=== PATIENT | female | born 1965 | race Caucasian/White ===

== ENCOUNTER 2017-01-30 07:49 | Day surgery (SDC) | payer MEDICAID ==
[~2017-01-30] VITALS: Ht 139.7 cm; Wt 81.0 kg
[2017-01-30] VITALS (11 sets, daily range): BP systolic 126–151; BP diastolic 74–108; PULSE 85–110
[~2017-01-30 07:49] MED LIST: 00186-0370-20 IH; CELEXA40 MG PO; CEPHALEXIN500 M1 PO; COREG 3.123.125 MG/T PO; FERROUS SU325 MG/TAB PO; GLUCOPHAGE500 MG/TAB PO; GLUCOTROL10 MG PO; HCTZ 25MG TAB25 MG PO; LASIX 20MG TABL20 MG PO; LOPRESSOR 225 MG/TAB PO; NAPROSYN500 MG PO; NORCO 325 MG-51 TAB PO; NOVOLIN 70/30 710 ML SQ; PREDNISONE20 MG PO; PROAIR HFA0.09 MG/AC IH; PROZAC 20MG20 MG PO; RT ALBUTER2.5 MG/0.5 IH; TOPROL XL 50MG50 MG PO; VASOTEC 5MG5 MG/TAB PO; ZESTRIL 10MG10 MG PO
[2017-01-30] MEDS ORDERED: HUMULIN 70/30 PE3 ML SQ (09:01)
[2017-01-30] MEDS ORDERED: GLUCOPHAGE500 MG/TAB PO (09:02)
[2017-01-30] MEDS ORDERED: LASIX 40MG TABL40 MG PO (09:03)
[2017-01-30] MEDS ORDERED: TIAZAC120 MG PO (09:04)
[2017-01-30] MEDS ORDERED: TOPROL XL 50MG50 MG PO (09:05)
[2017-01-30] MEDS ORDERED: COREG 6.256.25 MG/TA PO (09:05)
[2017-01-30 09:07] LABS: MEAN CELL VOLUME 75 fl (80.0-100.0); MEAN CORPUSCULAR HGB CONC 32 g/dl (33.0-37.0); MEAN PLATELET VOLUME 11.1 fl (7.4-10.4); PLATELET COUNT 259 K/mm3 (130-400); RED BLOOD COUNT 4.83 M/mm3 (4.10-5.30); REDCELL DISTRIBUTION WIDTH-CV 15.9 % (11.5-14.5); WHITE BLOOD COUNT 4.6 K/mm3 (4.8-10.8)
[2017-01-30 09:11] LABS: INR 1.1 (0.8-3.0); PROTHROMBIN TIME 11.9 SECONDS (9.7-12.8)
[2017-01-30 09:20] LABS: HEMATOCRIT 36.4 % (37.0-47.0); HEMOGLOBIN 11.6 g/dl (12.5-16.0); MEAN CORPUSCULAR HEMOGLOBIN 24 pg (27.0-31.0)
[2017-01-30 09:21] LABS: CALCIUM 8.9 mg/dL (8.4-10.2); CREATININE, serum 0.65 mg/dL (0.52-1.25); POTASSIUM 3.7 mmol/L (3.4-5.0)
[2017-01-30] MEDS ORDERED: CEPHALEXIN250 M1 PO (14:41)
== END 2017-01-30 15:01 | disposition home or self-care (01) ==
LOC: COL.CAR 07:49
PROVIDERS: Internal Medicine Interventional Cardiology
DX: T82.847A Pain due to cardiac prosthetic devices, implants and grafts, initial encounter (principal); I25.9 Chronic ischemic heart disease, unspecified; I50.22 Chronic systolic (congestive) heart failure; Z79.84 Long term (current) use of oral hypoglycemic drugs
CPT/HCPCS: J0690; J1200; J2250; J3010; J7040